=== PATIENT | male | born 1970 | race Caucasian/White ===

== ENCOUNTER → 2022-07-06 12:23 | Outpatient (POV) | payer MEDICAID, SELFPAY ==
--- NOTE | 2022-07-06 13:07 | EXP.PAIN.OV ---
HPI Data of Consult Patient: new to practice Consult date: 07/06/22 Requesting Physician: Marbella Burgos APRN Primary Care Provider: ROLANDO Askew Consult Narrative History of present illness: Mr. Montilla is a 51 year old male who presents today as a new patient. He is a referral from [facility]. Today he rates his pain 5 out of 10. Patient states his pain is all in his low back with radiating symptoms into his lower extremities. He does state the right leg is worse than the left with numbness. He does state this has been going on for years and progressively worsened over time. He does describe it as an aching, throbbing sensation that is worse with prolonged sitting, standing, walking. He states it does interfere with his ability to perform activities of daily living such as cooking and cleaning or even working outside. He does state he has arthritis in his knees and did have a left elbow injury last year that occasionally will still cause issues. Patient states he has tried [id number] Tylenol with minimal improvement along with heat and ice. He does state that heat helps more but is only temporary. Patient has had [id number] topicals however he did not notice any additional change. Patient is currently managed with methocarbamol 500 mg 4 times a day however he states he does not really take these and that when he has it only makes him a little sleepy. Patient does have a history of heart attack and A-fib. He is on Eliquis [address] Lieberman's office in [place]. He does state that he is scheduled for a colonoscopy on Monday and a scan of his gallbladder on Monday to check about its functioning. Patient denies any chiropractor history. He states he has been to physical therapy multiple times and that they have done heat and stretching exercises with minimal change. Patient is not on any scheduled medications. His Jonn is [id number]. Its been reviewed and appropriate. CC: Marbella Burgos APRN [facility] Disclaimer: The information contained in this section may have been updated after the patient was seen, as this information can be updated by other users. Social History Smoking Status: Unknown if ever smoked alcohol intake: former current occupational status: other Travel in the last 8 weeks: None Review of Systems Review of Systems Review of systems:: pertinent systems reviewed and negative unless documented below Review of systems (narrative): Review of Systems: General: No recent weight changes, no fever, no sleep disturbances Respiratory: No cough, no shortness of air, no recurring pulmonary infections Cardiovascular/peripheral vascular: No chest pain, no palpitations, no edema, no shortness of breath Gastrointestinal: No new onset incontinence, normal bowel movements reported Genitourinary: No new onset incontinence Musculoskeletal: Low back pain, bilateral leg pain Psychiatric: [Normal mood/affect] Neurological: [Denies weakness in extremities], [denies balance issues] Meds Home Medications and Allergies New Prescriptions to Start Prescriptions: Objective Narrative: Physical Exam: General: Alert and oriented x3, no acute distress, pleasant and cooperative Lungs: Respirations even and unlabored, symmetrical chest expansion Eyes: PERRL Musculoskeletal: Flexion and extension of lumbar [spine] somewhat guarded secondary to pain, [antalgic gait noted] point tenderness along lumbar spine Neurological: Speech clear, no gross sensory deficit Oswestry index score 41/82% Additional findings Additional findings: Primary plus 08/17/2021 X-ray thoracic spine Impression: 3 views. Vertebral bodies height is normal. No malalignment. No evidence of compression fracture. Upper dorsal vertebra are not well seen on the lateral view. Small osteophyte spurs at several levels. There is a atrial septal closure device noted. Impression: Very mild degenerative changes otherwi
[2022-07-06 13:21] VITALS: BP 116/67; PULSE 69; RESP 18; O2SAT 97; BMI 40.1
== END ==
PROVIDERS: PCP Physician Assistant Medical; Visit Provider Nurse Practitioner Family
DX: M54.16 Radiculopathy, lumbar region (principal); M54.50 Low back pain, unspecified; M79.604 Pain in right leg; M79.605 Pain in left leg
CPT/HCPCS: 99202; G0463

== ENCOUNTER → 2022-07-06 13:43 | Outpatient (CLI) | payer MEDICAID, SELFPAY ==
--- NOTE | 2022-07-06 13:51 | XR_ITS ---
FINAL REPORT CLINICAL HISTORY: LOW BACK PAIN AND SI JOINT PAIN FINDINGS: SACROILIAC JOINTS Three views were obtained. There is no acute fracture or dislocation. There are mild degenerative changes. No soft tissue abnormality is identified. IMPRESSION: Mild degenerative changes. Reviewed, Interpreted and Dictated by Terrell Martinez III, MD Transcribed by Alexandria Jaquez Authenticated and . [facility]
--- NOTE | 2022-07-06 13:51 | XR_ITS ---
FINAL REPORT CLINICAL HISTORY: LOW BACK PAIN AND SI JOINT PAIN FINDINGS: LUMBAR SPINE Five views demonstrate no acute fracture. There are mild degenerative changes with osteophytes. Facet arthropathy seen at L4-5 and L5-S1. There is mild anterolisthesis of L4 on 5. IMPRESSION: Degenerative changes as detailed above. Mild anterolisthesis of L4 on 5. Reviewed, Interpreted and Dictated by Terrell Martinez III, MD Transcribed by Alexandria Jaquez Authenticated and [facility]
== END ==
PROVIDERS: PCP Physician Assistant Medical; Visit Provider Nurse Practitioner Family
DX: M54.50 Low back pain, unspecified (principal); M53.3 Sacrococcygeal disorders, not elsewhere classified
CPT/HCPCS: 72110; 72202

== ENCOUNTER → 2022-07-19 12:45 | Outpatient (POV) | payer MEDICAID, SELFPAY ==
[2022-07-19 13:00] VITALS: BP 126/63; PULSE 72; RESP 18; TEMP 36.6; O2SAT 98; BMI 38.7
--- NOTE | 2022-07-19 13:12 | A.OFFVIS_ITS ---
[facility] Pain Management SOAP Note Subjective:: This patient is a very pleasant 51-year-old male comes our clinic today for follow-up visit after being denied lumbar epidural steroid injection at the L4-5 level. Patient brings to my attention today his reminded him he did physical therapy 2 months ago at [facility] in [facility]. Patient had significant increase in pain after several visits. He was advised by the therapist not to return until he received consultation with spine specialty. Patient describes his low back pain as constant, dull, sharp and stabbing. Patient reports feels like my back is breaking into in the lumbar spine area . Patient was on the ground recently fixing a tire and spent 30 minutes trying to get back up to a standing position. He has bilateral hip and leg radicular symptoms. Patient has tried and failed conservative measures such as home exercise, physical therapy in the last 2 months, NSAIDs, acetaminophen. He is having extreme difficulty doing ADLs. He has pain doing simple task around the house such as cleaning, sweeping, taking the trash out. We discussed attempting reauthorization of lumbar epidural steroid injection at the L4-5 level. He wishes to proceed. Objective:: Patient is awake alert [place] x3. In no acute distress. Flex tension lumbar spine somewhat guarded secondary to pain. Deep tendon reflexes upper and lower extremities normal. Motor strength upper and lower extremities normal. There is no gross sensory deficit. Gait is normal. Assessment:: Degenerative disc disease lumbar spine. Multilevel lumbar spondylosis. Lumbar radiculopathy. Plan:: We will attempt authorization from insurance regarding lumbar epidural steroid injection at the L4-5 level. I recommend this injection to help with low back pain as well as bilateral hip and leg radicular symptoms. I discussed in detail with the patient regarding the injection. Answered his questions. He wishes to proceed. [facility] Disclaimer: The information contained in this section may have been updated after the patient was seen, as this information can be updated by other users. Medical History Active asthma Afib CAD (coronary artery disease) CHF (congestive heart failure) DDD (degenerative disc disease) Heart murmur HLD (hyperlipidemia) Myocardial infarct Obesity Osteoarthritis Rotator cuff arthropathy Umbilical hernia Surgical History H/O right heart catheterization History of carpal tunnel surgery Status post patent foramen ovale closure Family History Other Cancer Diabetes Heart attack Hypertension Social History Smoking Status: Never smoker alcohol intake: former substance use type: denies use current occupational status: other Travel in the last 8 weeks: None
== END ==
PROVIDERS: PCP Physician Assistant Medical; Visit Provider Nurse Anesthetist, Certified Registered
DX: M51.16 Intervertebral disc disorders with radiculopathy, lumbar region (principal); M47.26 Other spondylosis with radiculopathy, lumbar region
CPT/HCPCS: 99212; G0463

== ENCOUNTER 2022-08-23 12:18 | Day surgery (SDC) | payer MEDICAID, SELFPAY ==
[2022-08-23 12:50] VITALS: BP 112/69; PULSE 89; RESP 18; TEMP 36.5; O2SAT 95; BMI 40.1
[2022-08-23 13:13] VITALS: BP 112/44; PULSE 62; RESP 18; O2SAT 95
--- NOTE | 2022-08-23 13:27 | EXP.PAIN.PRO ---
Procedure Date: 08/23/22 Time: 13:00 Anesthesiologist:: Nilay Vee CRNA Complications:: None Pre-procedure Diagnosis:: Degenerative disc disease lumbar spine multilevels. Lumbar radiculopathy. Lumbar spondylosis Post-procedure Diagnosis:: Pain. Indications for Procedure:: Patient is a very pleasant 51-year-old male that comes our clinic today for lumbar epidural steroid injection at the L4-5 level. Patient complains of low back pain as well as bilateral hip and leg radicular symptoms. Patient rates his pain 6/10. Procedure Details:: Procedure: Lumbar epidural steroid injection under fluoroscopy Informed consent was obtained and the risks and benefits of the procedure were explained to the patient. The patient was taken to the procedure room and noninvasive monitors placed, including noninvasive blood pressure cuff and pulse oximeter. The back was viewed using C-arm Fluoroscopy and prepped using Chloraprep as a cleansing solution and the L4-L5 interspace was palpated. Skin and subcutaneous tissues were anesthetized using lidocaine 1.5% and a 25-gauge needle. After this, an 18-gauge Touhy epidural needle was placed into the L4-L5 interspace and advanced using fluoroscopic guidance and loss of resistance to air until the epidural space was encountered. After confirmation of needle placement in the epidural space, with dye, a solution containing normal saline, 3 mL and Depo-Medrol 80 mg were incrementally injected into the lumbar epidural space. The patient tolerated the procedure well with no complications. The patient was observed in the Pain Clinic and then discharged home neurologically intact. Plan and Disposition:: Patient was discharged without incident.
== END 2022-08-23 13:13 | disposition home or self-care (01) ==
PROVIDERS: PCP Physician Assistant Medical; Visit Provider Nurse Anesthetist, Certified Registered
DX: M51.16 Intervertebral disc disorders with radiculopathy, lumbar region (principal); M47.26 Other spondylosis with radiculopathy, lumbar region
CPT/HCPCS: 62323; J1040

== ENCOUNTER → 2022-09-07 14:08 | Outpatient (POV) | payer MEDICAID, SELFPAY ==
--- NOTE | 2022-09-07 14:20 | EXP.PAIN.SOA ---
[facility] Pain Management SOAP Note Subjective:: Patient is a pleasant 51-year-old male who presents today for follow-up of lumbar epidural steroid injection at L4-L5 on 08/23/2022. We are currently treating the patient for low back pain with lumbar radiculopathy symptoms. Today he rates his pain 5 out of 10.? He denies any new trauma or injury from his last visit with us. He denies any change in location or type of pain he experiences. He does state that he did not get significant relief with this injection. He states he is back at his baseline at today's visit. He states this is an aching, throbbing sensation that is worse with increased activity that goes from his low back into his bilateral lower extremities.? He states it does interfere with his ability to perform activities of daily living such as cooking and cleaning.? He did have his x-ray imaging of his lumbar spine and SI joints done from our last visit. Patient is currently managed with methocarbamol 500 mg 4 times a day however he says it does not seem to do a whole lot.? Patient does have a history of heart attack and A-fib.? He is on Eliquis [address] Lieberman's office in [place]. Patient states that when he went for his injection he did still bleed quite a bit. He has been to physical therapy multiple times with no additional relief patient is not on any scheduled medications.? His Jonn is [id number].? Its been reviewed and appropriate. Review of Systems: General: No recent weight changes, no fever, no sleep disturbances Respiratory: No cough, no shortness of air, no recurring pulmonary infections Cardiovascular/peripheral vascular: No chest pain, no palpitations, no edema, no shortness of breath Gastrointestinal: No new onset incontinence, normal bowel movements reported Genitourinary: No new onset incontinence Musculoskeletal: Low back pain, leg pain Psychiatric: [Normal mood/affect] Neurological: [Denies weakness in extremities], [denies balance issues] Objective:: Physical Exam: General: Alert and oriented x3, no acute distress, pleasant and cooperative Lungs: Respirations even and unlabored, symmetrical chest expansion Eyes: PERRL Musculoskeletal: Flexion and extension of lumbar [spine] somewhat guarded secondary to pain, [antalgic gait noted] Neurological: Speech clear, no gross sensory deficit FINAL REPORT CLINICAL HISTORY: LOW BACK PAIN AND SI JOINT PAIN FINDINGS: SACROILIAC JOINTS? Three views were obtained.? There is no acute fracture or dislocation.? There are mild degenerative changes. No soft tissue abnormality is identified. IMPRESSION: Mild degenerative changes. Reviewed, Interpreted and Dictated by Terrell Martinez III, MD Transcribed by Alexandria Jaquez Authenticated and [facility] FINAL REPORT CLINICAL HISTORY: LOW BACK PAIN AND SI JOINT PAIN FINDINGS: LUMBAR SPINE? Five views demonstrate no acute fracture.? There are mild degenerative changes with osteophytes.? Facet arthropathy seen at L4-5 and L5-S1.? There is mild anterolisthesis of L4 on 5. IMPRESSION: Degenerative changes as detailed above.? ? Mild anterolisthesis of L4 on 5. Reviewed, Interpreted and Dictated by Terrell Martinez III, MD Transcribed by Alexandria Jaquez Authenticated and [facility] Assessment:: Degenerative disc disease of lumbar spine with lumbar radiculopathy symptoms, low back pain, bilateral leg pain Plan:: Patient continues to experience significant pain in his low back with limited range of motion of his lumbar spine. I have discussed with the patient that he may benefit from repeat lumbar epidural steroid injection. His x-ray imaging did show degenerative disc disease more prominent at L4-L5 and L5-S1. Risk and benefits were discussed with the patient and he would like to proceed forward with this plan
[2022-09-07 14:44] VITALS: BP 102/54; PULSE 61; RESP 18; O2SAT 97; BMI 40.3
== END ==
PROVIDERS: PCP Physician Assistant Medical; Visit Provider Nurse Practitioner Family
DX: M51.16 Intervertebral disc disorders with radiculopathy, lumbar region (principal); M79.604 Pain in right leg; M79.605 Pain in left leg
CPT/HCPCS: 99212; G0463